=== PATIENT | male | born 1945 | race Caucasian/White ===

== ENCOUNTER → 2024-07-31 08:46 | Outpatient (REF) | payer MEDICARE, OTHER, SELFPAY | LOC: RAD 08:46 | PROVIDERS: ATTENDING PHYSICIAN Surgery Vascular Surgery; FAMILY PHYSICIAN Family Medicine | DX: I65.23 Occlusion and stenosis of bilateral carotid arteries (principal) | CPT/HCPCS: 70496; 70498; Q9967 ==

== ENCOUNTER 2024-09-02 06:03 | Inpatient (IN) | payer MEDICARE, OTHER, SELFPAY ==
[2024-08-26 09:41] VITALS: BMI 37.8
[2024-08-26 10:12] LABS: % Basophils 1.1 % (0-2); % Eosinophils 6.1 % (0-6); % Immature Granulocytes 0.5 % (0-0.5); % Lymphocytes 12.2 % (20.5-51.1); % Monocytes 11.2 % (1.7-9.3); % Neutrophils 68.9 % (42.2-75.2); Absolute Basophils 0.1 10^3/uL (0-0.2); Absolute Eosinophils 0.5 10^3/uL (0-0.7); Absolute Lymphocytes 0.9 10^3/uL (1.2-3.4); Absolute Monocytes 0.8 10^3/uL (0.1-0.6); Absolute Neutrophils 5.1 10^3/uL (1.4-6.5); Hematocrit 41.2 % (39.0-52.0); Hemoglobin 13.7 g/dL (13.0-18.0); Mean Corp Hgb Conc. 33.3 g/dL (33.0-37.0); Mean Corpuscular Hgb 29.9 pg (27.0-31.0); Mean Platelet Volume 10.4 fL (7.4-10.4); Nucleated Red Blood Cells % 0 % (-); Platelet Count 485 10^3/uL (130-400); Red Blood Cell Count 4.58 10^6/uL (4.70-6.10); Red Cell Dist. Width 14.8 % (11.5-14.5); White Blood Cell Count 7.4 10^3/uL (4.8-10.8)
[2024-08-26 10:17] LABS: PT 14.5 Sec (11.4-14.6)
[2024-08-26 10:23] LABS: APTT 29.3 Sec (23.4-35.0)
[2024-08-26 10:49] LABS: Blood Urea Nitrogen 19 mg/dl (9-20); Calcium 9.3 mg/dl (8.4-10.2); Carbon Dioxide 28 mmol/L (22-30); Chloride 105 mmol/L (98-107); Estimated Creatinine Clearance 94 ml/min; Glucose 106 mg/dl (70-99); Potassium 5.5 mmol/L (3.5-5.1); Sodium 144 mmol/L (135-145); eGFR > 60.00
--- NOTE | 2024-08-27 10:01 | PTCARENOTE ---
K+ 5.5, Dr. Caputo's Office made aware.
--- NOTE | 2024-08-27 14:51 | PTCARENOTE ---
K+ 5.5, Dr. Cramer notified, no new actions required.
[2024-09-02] VITALS (21 sets, daily range): BP systolic 141–165; BP diastolic 59–82
[2024-09-02] MEDS: PERIDEX 0.12% ORAL RINSE 15 ML PO (07:06)
[2024-09-02] MEDS: BACTROBAN NASAL 1 GRAM NASAL (07:07)
[2024-09-02] MEDS: NSS 500 IV (07:07)
--- NOTE | 2024-09-02 07:26 | W.SUR.PREOP ---
Pre-Operative Surgical Note
-
I have examined this patient prior to the performance of the scheduled procedure.
The patient's condition is unchanged from the time of the current History and
Physical and the patient is able to undergo the scheduled procedure.
[2024-09-02 09:01] LABS: ACT-LR - POC 207 Seconds (116-155)
[2024-09-02 09:07] LABS: ACT-LR - POC 207 Seconds (116-155)
[2024-09-02 09:13] LABS: ACT-LR - POC 232 Seconds (116-155)
[2024-09-02 09:22] LABS: ACT-LR - POC 292 Seconds (116-155)
[2024-09-02 09:49] LABS: ACT-LR - POC 224 Seconds (116-155)
--- NOTE | 2024-09-02 10:21 | OR.RPT ---
Operative Report
Operative Report
Date of Operation: 09/02/2024
Pre Op Diagnosis: Asymptomatic high-grade stenosis right internal carotid artery
Post Op Diagnosis: Asymptomatic high-grade stenosis right internal carotid artery
Procedure: RIGHT carotid endarterectomy with patch angioplasty using bovine pericardium
Surgeon: Chad Caputo III, MD
Tug Master: Lacho Pritchard MD PhD, PGY2
Anesthesia: General
Complications: None
History and Indications for Procedure: 79-year-old male with right carotid artery stenosis
Procedure in Detail: Marquise Benitez was correctly identified and placed supine on the operating table. After adequate induction of anesthesia the right neck was positioned, prepped and draped in the usual sterile fashion. Preoperative antibiotics
were administered. A timeout procedure was performed with the nursing and anesthesia staff confirming the patients identity as well as the nature and laterality of the procedure.
The carotid bifurcation was marked with ultrasound at the beginning of the case. The incision was planned accordingly. An incision was made along the anterior border of the right sternocleidomastoid muscle. Electrocautery was used to divide the
subcutaneous tissue and platysma. The carotid sheath was entered with sharp dissection. The internal jugular vein was retracted laterally. The vagus nerve was identified and protected throughout the case. The common carotid artery was identified at
the base of this incision and carefully encircled with a vessel loop. The patient was systemically heparinized. The dissection was continued distally towards the carotid bifurcation. The facial vein was skeletonized, ligated and divided between ties
and clips. The proximal external carotid artery was encircled with a vessel loop. The distal internal carotid artery was encircled with a vessel loop at a soft spot on the artery beyond the plaque. The hypoglossal nerve was identified and protected.
The internal vessel loop was secured followed by the common and external. An arteriotomy was made on the distal common carotid artery with an 11-blade. This was extended proximally and distally with Virgen scissors. The arteriotomy was extended
distally through the plaque to an area of normal appearing internal carotid artery. The distal vessel loop was replaced with a short tip hockey-stick type vascular clamp. An endarterectomy was performed with a [place] elevator in the standard
fashion. The proximal extent of the plaque was transected with scissors. The distal end of the plaque in the internal carotid artery was feathered and there was a slight distal intimal flap identified. This was tacked down with 2 interrupted 7-0
Prolene sutures along the back wall. The plaque extending into the external carotid artery was everted. Once the plaque was fully removed the endarterectomy plane was irrigated with heparinized saline and any loose fronds of tissue were removed. A
pre-cut piece of bovine pericardium was sewn in place using a running 6-0 Prolene suture. Prior to the completion of the patch the common carotid was allowed to forward bleed and the external was allowed to back bleed. The area under the patch was
irrigated with heparinized saline to remove any potential thrombus or debris. The anastomosis was completed.
The external vessel loop was released first, followed by the common and then the internal. There was an excellent pulse in the distal internal carotid artery. An excellent quality Doppler signal in the distal internal carotid artery was also
confirmed. The patch suture line was closely inspected for hemostasis and was achieved. Protamine was administered. Hemostasis was achieved in the wound bed. The wound was irrigated with saline solution.
The wound was then closed in layers. Sterile dressings were applied. The patient awoke from anesthesia with no immediate neuro deficits and was taken to the PACU in stable condition.
Attestation: I was present and responsible for the entire procedure
Signed:
Chad Caputo III, MD
[facility]
[phone] (cell)
--- NOTE | 2024-09-02 10:43 | W.IMMPOSTOP ---
Surgical Immed Post Op Note
-
Primary Surgeon: Dr. Chad Caputo III, MD
Assisting Surgeon: Lacho Pritchard MD, PhD (PGY-2)
Pre-op Diagnosis: High grade stenosis of right carotid artery
Post-op Diagnosis: High grade stenosis of right carotid artery
Procedure Performed: Right carotid endarterectomy with bovine patch angioplasty
Anesthesia Type: General
Specimen / Cultures: None
Estimated Blood Loss: Minimal
Complications: None
Operative Findings: The patient was brought to the OR and placed in the supine position. Following anesthesia induction and neuromonitoring set up, ultrasound guidance was used to nadira the course of the right common carotid artery, carotid
bifurcation, and internal carotid artery. Incision was made along the anterior border of the SCM. Electrocautery and sharp dissection was used to expose the right common carotid artery. Care was taken to avoid the jugular vein and vagus nerve.
Proximal control was obtained around the common carotid artery. Further dissection exposed the internal carotid artery, external carotid artery, and the superior thyroid artery, which were controlled with vessel loops. The facial vein was ligated
with silk ties. Arteriotomy was made with a blade and extended with Virgen scissors. A freer was used to perform the endarterectomy. Three tacking sutures were placed within the vessel to tack up flaps of intima after performing the endarterectomy. A
piece of bovine patch was brought to the field and sized to the arteriotomy. A 6-0 prolene suture was used to perform the patch angioplasty. Prior to completing the patch angioplasty, heparinized saline was used to flush the vessel proximally and
distally. The vessel loops were removed. A doppler was brought to the field and confirmed strong signals in the internal and external carotid arteries. The wound bed was irrigated. Hemostasis was achieved. The wound bed was closed with 2-0, 3-0, and
4-0 layers and skin glue. At the completion of the case the patient followed commands, demonstrated motor function of the facial muscles as well as the upper and lower extremities. The patient was transported to the PACU in stable condition.
[2024-09-02 10:49] LABS: Hematocrit 38.9 % (39.0-52.0); Hemoglobin 12.9 g/dL (13.0-18.0); Mean Corp Hgb Conc. 33.2 g/dL (33.0-37.0); Mean Corpuscular Hgb 30.1 pg (27.0-31.0); Mean Corpuscular Volume 90.7 fL (80.0-94.0); Mean Platelet Volume 10.2 fL (7.4-10.4); Platelet Count 447 10^3/uL (130-400); Red Blood Cell Count 4.29 10^6/uL (4.70-6.10); Red Cell Dist. Width 15.2 % (11.5-14.5); White Blood Cell Count 9.3 10^3/uL (4.8-10.8)
--- NOTE | 2024-09-02 10:50 | CON.INTV ---
Consultation
Consultation Request
Date/Time Consultation Requested: 09/02/2024 - 1027
Date/Time Consultation Performed: 09/02/2024 - 1048
Requesting Provider: LESLY Pena
Performing Provider: Stan Ramirez MD
Reason for Consultation: s/p R-CEA
Medical History
-
Chief Complaint: Elective right carotid endarterectomy
History of Present Illness:
79-year-old male non-smoker with a past medical history of colon cancer s/p resection (2003), hypertension, hypercholesterolemia, bilateral carotid artery stenosis and RBBB who presents with right carotid endarterectomy. Patient known to vascular
surgery service with last visit on 07/23/[address] Caputo. CTA head & neck from 07/31/2024 shows 70% stenosis of the right internal carotid artery with 60% stenosis of the left common carotid artery, and 40-50% stenosis of the left internal
carotid artery. He has known extensive soft plaque in his left common carotid artery + ICA and also significant stenosis in his right carotid artery. He has mild weakness of his right arm/right leg relative to his left. No recent visual changes
or dysarthria. Vascular intervention with risks and benefits were discussed, and today he underwent a right carotid endarterectomy with patch angioplasty using bovine pericardium. There were no immediate complications and he was transferred to the
ICU for further care. [employer] services consulted for additional management/recommendations.
When I saw the patient he was resting in bed in no acute distress. Heart rate 79, BP via A-line: 134/44, BP via NIBP: 150/135, and saturating 97% on 2 L/min nasal cannula. He has numbness on his right anterior neck but denies pain currently. Also
denies headache, visual changes, chest pain, SOB, abdominal pain, nausea, fevers or chills.
PMHx: Bilateral carotid artery stenosis, hypercholesterolemia, history of stroke (11/2023), history of colon cancer s/p resection (2003), hypertension, history of RBBB
PSHx: Tonsillectomy, appendectomy, retinal detachment surgery, colon surgery (2003), cholecystectomy
Past Medical History
Past Medical History: Other (Above as per HPI)
Past Surgical History: Other (Above as per HPI)
Social History
Tobacco: Non-smoker
Alcohol: None
Drug: None
Family History
Family History: Diabetes (Mother) and Hypertension (Father)
Allergies / Home Medications
Allergies
Allergy/AdvReac Type Severity Reaction Status Date / Time
No Known Allergies Allergy Unverified 08/21/24 13:01
Home Medications
�Medication �Instructions �Recorded �Confirmed �Last Taken �Type
aspirin 81 mg capsule 81 mg PO DAILY 08/21/24 09/02/24 09/02/24 History
atorvastatin 40 mg tablet 40 mg PO DAILY 08/21/24 09/02/24 09/01/24 17:00 History
terazosin 2 mg capsule 2 mg PO DAILY 08/21/24 09/02/24 09/01/24 20:00 History
terazosin 5 mg capsule 5 mg PO DAILY 08/21/24 09/02/24 09/01/24 20:00 History
timolol 0.5 % eye drops 1 drp ophthalmic (eye) BID 09/02/24 09/02/24 Unknown History
Review of Systems
-
History Source: Patient
All other systems: Negative unless noted
Vitals / Labs / Diagnostic Testing
Vital Signs
Temp Pulse Resp BP Pulse Ox
97.8 F 77 17 162/82 96
09/02/24 15:37 09/02/24 16:15 09/02/24 16:15 09/02/24 16:00 09/02/24 16:15
Lab Data
09/02/24 10:34
09/02/24 10:34
Laboratory Results
09/02/24
14:14
PT 15.2 H
INR 1.17
APTT 29.9
Diagnostic Testing:
Physical Exam
-
HEENT: Normocephalic, Anicteric and Other (Vertical incision nadira is seen on right anterior neck with no bleeding or purulence seen)
Cardiovascular: S1/S2 and Peripheral Edema (negative)
Respiratory: Wheeze (negative), Rales (negative), Rhonchi (negative) and Non-Labored Respirations
GI: Soft, Distended (Abdominal obesity), Non Tender and Normal Bowel Sounds
Neurology: AO x 3 and Tremors (negative)
Skin: Warm and Dry
General: Respiratory Distress (negative), Comfortable, Fever (negative) and Chills (negative)
Assessment
-
Assessment: 79-year-old male non-smoker with a past medical history of colon cancer s/p resection (2003), hypertension, hypercholesterolemia, bilateral carotid artery stenosis and RBBB who presents with right carotid endarterectomy. Patient known
to vascular surgery service with last visit on 07/23/[address] Caputo. CTA head & neck from 07/31/2024 shows 70% stenosis of the right internal carotid artery with 60% stenosis of the left common carotid artery, and 40-50% stenosis of the left
internal carotid artery. He has known extensive soft plaque in his left common carotid artery + ICA and also significant stenosis in his right carotid artery. He has mild weakness of his right arm/right leg relative to his left. No recent visual
changes or dysarthria. Vascular intervention with risks and benefits were discussed, and today he underwent a right carotid endarterectomy with patch angioplasty using bovine pericardium. There were no immediate complications and he was
transferred to the ICU for further care. Bellperson services consulted for additional management/recommendations.
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
Impression:
#Asymptomatic high-grade stenosis involving right internal carotid artery s/p right carotid endarterectomy with patch angioplasty using bovine pericardium (POD #0)
#Acute anemia due to above
#Thrombocytosis likely reactive due to above
#Obesity (BMI: 37.8)
#History of colon cancer s/p resection (2003)
#RBBB
#Hypertension
#Hypercholesterolemia
Plan:
Postoperative surgical intensive care unit monitoring
Supplemental oxygen as needed to maintain SpO2 >90-94%
prn nebulized bronchodilators
Incentive spirometry encouraged 10x per hour for at least 4 hrs a day
Aspiration precautions
Pain control
Neuro and vascular checks per protocol
Maintain MAP>65
Replete electrolytes with K>4, Mg>2
Maintain euglycemia with goal BG 140-180
Vascular surgery following-correspondence and operative notes reviewed
Transfuse blood products as needed to keep Hb>7g/dL, and plt>50k (given post-operative status)
DVT prophylaxis
Early nutrition
Early mobilization
Critical care statement: A total of 44 minutes of critical care time was provided for this patient today. This includes management of unstable vital signs, evaluation of the patient at bedside, reviewing the patient's pertinent medical records
including radiographs, microbiology, laboratory evaluations, and discussion with primary team, consultants, pharmacy, nutrition, physical therapy, case management, charge nurse, critical care nursing, and respiratory therapy.
[2024-09-02] MEDS: DILAUDID 0.25 MG IV (10:52)
[2024-09-02 11:02] LABS: Blood Urea Nitrogen 19 mg/dl (9-20); Calcium 8.4 mg/dl (8.4-10.2); Carbon Dioxide 27 mmol/L (22-30); Chloride 106 mmol/L (98-107); Estimated Creatinine Clearance 94 ml/min; Glucose 131 mg/dl (70-99); Potassium 4.8 mmol/L (3.5-5.1); Sodium 141 mmol/L (135-145); eGFR > 60.00
[2024-09-02] MEDS: CARDENE 200 IV (11:09)
[2024-09-02] MEDS: DILAUDID 0.5 MG IV (11:31)
[2024-09-02] MEDS: NSS 1000 IV (14:15)
--- NOTE | 2024-09-02 14:38 | PTCARENOTE ---
received from pacu, very talkative. monitor nsr with bbb,avb. left radial arterial line with good waveform, cuff correlation. assessments per work list. attempted to void in urinal, no success. bladder scan per work list, right neck incision intact
with slight bruising. cardene per work list. call lamb in reach. updated with plan of care
[2024-09-02 14:51] LABS: INR 1.17; PT 15.2 Sec (11.4-14.6)
[2024-09-02 14:52] LABS: APTT 29.9 Sec (23.4-35.0)
--- NOTE | 2024-09-02 16:22 | PTCARENOTE ---
reassessed. remains very talkative. hand grsps and pedal pushes equal, tongue midline and smile remains symmetrical. tolerated lunch, denies need for pain medications. room air pulse oximeter 90, placed back on 1 liter nasal cannula. cardene remains
per work list. blood pressure within ordered parameters
[2024-09-02] MEDS: LIPITOR 40 MG PO (17:58)
[2024-09-02] MEDS: TYLENOL 650 MG PO (17:58)
--- NOTE | 2024-09-02 20:00 | PTCARENOTE ---
rec`d pt at 1900 AAOx3. hard of hearing, very talkative. anxious. SR on monitor. HR 60s-80s. left radial a line. left w 20 and rt w 18. neuro checks continued. +pulses. +1 edema. cardene on at 2.5 to maintain SBP 100-165. 1L NC crackles. uses
urinal. Rt neck incision with surgi glue. ecchymotic and some swelling. NS at 80cc. call lamb in reach, safe environment maintained.
[2024-09-02] MEDS: DESENEX/MITRAZOL/ZEASORB 1 APPLIC TOPICAL (20:14)
[2024-09-02] MEDS: HEPARIN 5000 UNITS SC (20:15)
[2024-09-02] MEDS: TIMOPTIC 0.5% OPHTHALMIC SOLUTION 1 DROP RIGHT EYE (20:24)
[2024-09-02] MEDS: HYTRIN 5 MG PO (21:00)
[2024-09-02] MEDS: HYTRIN 2 MG PO (21:00)
[2024-09-03] VITALS (8 sets, daily range): BP systolic 127–158; BP diastolic 52–61; BMI 36.4
[2024-09-03] MEDS: CARDENE 200 IV (00:18)
--- NOTE | 2024-09-03 01:00 | PTCARENOTE ---
pt reassessed. no changes in pt assessment. call lamb in reach, safe environment maintained.
[2024-09-03] MEDS: NSS 1000 IV (01:13)
--- NOTE | 2024-09-03 04:00 | PTCARENOTE ---
cardene off, SBP 145
[2024-09-03 04:28] LABS: Hematocrit 37.2 % (39.0-52.0); Hemoglobin 12.5 g/dL (13.0-18.0); Mean Corp Hgb Conc. 33.6 g/dL (33.0-37.0); Mean Corpuscular Hgb 29.9 pg (27.0-31.0); Mean Platelet Volume 10.5 fL (7.4-10.4); Platelet Count 522 10^3/uL (130-400); Red Blood Cell Count 4.18 10^6/uL (4.70-6.10); Red Cell Dist. Width 14.9 % (11.5-14.5); White Blood Cell Count 10.3 10^3/uL (4.8-10.8)
[2024-09-03 04:34] LABS: APTT 31.3 Sec (23.4-35.0); INR 1.21; PT 15.6 Sec (11.4-14.6)
[2024-09-03 04:58] LABS: Blood Urea Nitrogen 17 mg/dl (9-20); Calcium 8.4 mg/dl (8.4-10.2); Carbon Dioxide 27 mmol/L (22-30); Chloride 105 mmol/L (98-107); Estimated Creatinine Clearance 108 ml/min; Glucose 158 mg/dl (70-99); Potassium 4.7 mmol/L (3.5-5.1); Sodium 139 mmol/L (135-145); eGFR > 60.00
--- NOTE | 2024-09-03 07:55 | W.PN.VS ---
Addendum entered and electronically signed by Marc Encarnacion MD 09/03/24 10:43:
Seen and examined with MORGAN Brambila. Agree with findings as noted below. Right neck incision clean dry and intact. No hematoma. Neurologically no focal deficits. Moves all extremities well. Tongue midline. Plan/as discussed and noted below.
Original Note:
Today's Communication / Plan
-
Seen and assessed with Dr. Encarnacion
Assessment/Plan
-
POD 1 Right CEA
Plan:
- DC A-line
� Out of bed
� DC IV fluids
-P.o. meds
-Increase diet
� Likely DC later today
Subjective Data
-
Date of Service: September 03, 2024
Patient seen at bedside this a.m. with Dr. Encarnacion. Patient offers no complaints. Off Cardene drip at this time.
Objective Data
-
Vital Signs
Temp Pulse Resp BP Pulse Ox
98.5 F 67 24 157/61 95
09/03/24 07:42 09/03/24 04:00 09/03/24 04:00 09/03/24 00:00 09/03/24 04:00
Intake and Output
09/02/24 09/03/24 09/04/24
06:59 06:59 06:59
Intake Total 2275.0 / 2275.0
Output Total 1350 / 1350
Balance 925.0 / 925.0
Intake:
Oral fluids 700 / 700
IV fluids (Total) 1575.0 / 1575.0
Normosol 200 / 200
Nss 1,000 ml @ 80 mls/hr IV . 1200 / 1200
[id number] DAVID Rx#:[id number]
cardene 175.0 / 175.0
Output:
Urine, Voided 1350 / 1350
Other:
How many times incontinent 1
MODERATE amount urine
Lab Results
09/03/24 03:45
09/03/24 03:45
Calcium 8.4 mg/dl (8.4-10.2) 09/03/24 03:45
Physical Exam
-
AAOx3
No tachypnea on room air
No tachycardia
Abdomen soft
Site clean, dry, intact, soft, flat
Moving all extremities equally
Tongue midline
[2024-09-03] MEDS: HEPARIN 5000 UNITS SC (08:24)
[2024-09-03] MEDS: TIMOPTIC 0.5% OPHTHALMIC SOLUTION 1 DROP RIGHT EYE (08:24)
[2024-09-03] MEDS: LOW STRENGTH ASPIRIN 81 MG PO (08:24)
[2024-09-03] MEDS: DESENEX/MITRAZOL/ZEASORB 1 APPLIC TOPICAL (08:25)
--- NOTE | 2024-09-03 08:31 | W.PN.INTV ---
Today's Communication / Plan
Recommendations
Pain control
Up OOB as tolerated
Follow-up with vascular surgery and PCP
Encourage incentive spirometer use
Maintain SpO2 >90-94%
Patient is being prepared for discharge home. No additional recommendations at this time. Service Supervisor/Pulmonary service will now sign off. Please re-consult if there are any additional questions/concerns, or if patient's respiratory status
deteriorates.
Assessment
-
Assessment: 79-year-old male non-smoker with a past medical history of colon cancer s/p resection (2003), hypertension, hypercholesterolemia, bilateral carotid artery stenosis and RBBB who presents with right carotid endarterectomy. Patient known
to vascular surgery service with last visit on 07/23/[address] Caputo. CTA head & neck from 07/31/2024 shows 70% stenosis of the right internal carotid artery with 60% stenosis of the left common carotid artery, and 40-50% stenosis of the left
internal carotid artery. He has known extensive soft plaque in his left common carotid artery + ICA and also significant stenosis in his right carotid artery. He has mild weakness of his right arm/right leg relative to his left. No recent visual
changes or dysarthria. Vascular intervention with risks and benefits were discussed, and today he underwent a right carotid endarterectomy with patch angioplasty using bovine pericardium. There were no immediate complications and he was
transferred to the ICU for further care. Service Supervisor services consulted for additional management/recommendations.
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
Impression:
#Asymptomatic high-grade stenosis involving right internal carotid artery s/p right carotid endarterectomy with patch angioplasty using bovine pericardium (POD #1)
#Acute anemia due to above
#Thrombocytosis likely reactive due to above
#Obesity (BMI: 37.8)
#History of colon cancer s/p resection (2003)
#RBBB
#Hypertension
#Hypercholesterolemia
Plan:
Postoperative surgical intensive care unit monitoring
Supplemental oxygen as needed to maintain SpO2 >90-94%
prn nebulized bronchodilators - not currently bronchospastic
Incentive spirometry encouraged 10x per hour for at least 4 hrs a day
Aspiration precautions
Pain control
Neuro and vascular checks per protocol
Maintain MAP>65
Replete electrolytes with K>4, Mg>2
Maintain euglycemia with goal BG 140-180
Vascular surgery following-correspondence and operative notes reviewed
Transfuse blood products as needed to keep Hb>7g/dL, and plt>50k (given post-operative status)
DVT prophylaxis
Early nutrition
Early mobilization
Patient is being prepared for discharge home. No additional recommendations at this time. Service Supervisor/Pulmonary service will now sign off. Thank you for allowing us to be involved in the care of this patient. Please reconsult if there are any
additional questions/concerns, or if patient's respiratory status deteriorates.
Total time spent today was 42 minutes for this encounter. Time includes reviewing laboratory test/imaging results, reviewing pertinent medical records, obtaining and reviewing medical history, performing an appropriate exam, ordering medications,
tests and procedures. Time also includes documentation of this encounter, coordinating patient care and communicating with other healthcare professionals. Total time does not include separately billed tests performed on this date of service.
Subjective Dataa
Subjective Data
Date of Service:
Date of Service: September 03, 2024
Chief Complaint: Service Supervisor Follow Up
Subjective:
Patient was seen and evaluated this morning. Doing well with no acute events reported overnight. A-line out. Off cardene since overnight. BP 129/58, HR 56 and on RA saturating 93%. He has minimal complaints, denying neck pain, HERRERA, SOB, CP,
abdominal pain, nausea, fevers or chills.
Review of Systems
General: Other (Negative unless mentioned above)
Objective Data
Data Reviewed
Vital Signs / I&O / Oxygen:
Vital Signs
Temp Pulse Resp BP Pulse Ox
98.5 F 60 15 148/55 95
09/03/24 07:42 09/03/24 09:10 09/03/24 09:10 09/03/24 08:08 09/03/24 09:10
Intake and Output
09/02/24 09/03/24 09/04/24
06:59 06:59 06:59
Intake Total 2355.0 / 2435.0 540 / 540
Output Total 1350 / 1350
Balance 1005.0 / 1085.0 540 / 540
SaO2 95
Nasal Cannula flow liters per 1
minute
Physical Exam
General: Respiratory Distress (negative), Comfortable, Chills (negative) and Sweats (negative)
HEENT: Normocephalic, Anicteric and Other (Vertical incision scar seen over right anterior neck)
Cardiovascular: S1-S2 and Peripheral Edema (negative)
Respiratory: Clear, Wheeze (negative), Crackles (negative), Rhonchi (negative) and Non-Labored Respirations
GI: Soft, Distended (Abdominal obesity), Non Tender and Normal Bowel Sounds
Neurology: AO x 3 and Tremors (negative)
Skin: Warm, Dry, Cyanosis (negative) and Jaundice (negative)
Labs/Micro/Reports
Lab Data
09/03/24 03:45
09/03/24 03:45
Laboratory Results
09/02/24 09/03/24
14:14 03:45
PT 15.2 H 15.6 H
INR 1.17 1.21
APTT 29.9 31.3
--- NOTE | 2024-09-03 09:00 | PTCARENOTE ---
Rec'd pt at 0700 awake alert and oriented resting in bed. Neuro check completed with offgoing RN. Pt is very talkative and anxious/expressing concern over when he will be discharge because he would like to be discharged by 1230. Worried about the
person picking him up driving from [employer] and not being able to find where to pick him up at the hospital. Reassurance and multiple discussions and explanations given about plan of care. Pt made aware he may not be discharge by 12:30- more like
early to mid afternoon depending on how he is doing confirmed by who was in to see him. Verbalized understanding. Pt tends to ask questions about every aspect of his care. Speech is clear. Tongue is midline. MIRELLA at 2mm. Pt admits he has very
limited vision in his L eye from a prior retinal tear. MATHUR equally. Denies numbness or tingling. Skin is pale pink wm and dry. R neck incision is approximated with surgical adhesive present. Sl ecchymosis around incision and sl neck swelling at
incision but no change from previous. No hematoma noted. No drainage. Respirs are sl shallow but non-labored on RA with sats of 93-94%. BS are decreased at the bases. Monitor SR -Sbrady with 1st' avb, BB config and isolated PVC. ECG completed as
ordered. + pulses. PT and DP pulses with the doppler. Edema as noted. Denies chest pain. L radial mark present. Site wnl. Zeroed and recalibrated. Within 10-12 mm/hg of cuff BP. Cardene gtt remains off. Abd is obese/round with + BS. Denies nausea.
Denies need to void currently but has been using the urinal. IV NSS infusing via R wrist IV site at 80 ml/hr. Capped Int intact L wrist. Pt repositioned and ready to eat breakfast. Call lamb in reach an plan of care reviewed several times with pt.
--- NOTE | 2024-09-03 09:11 | CM ---
CM following re: discharge planning.
Reviewed pt's chart, met with pt.
Pt is a 79 year old male, admitted with primary dx of POD 1 s/p Right CEA. Per vasculare surgery, pt will be discharged home this afternoon. Pt is aware, expressed his agreement and he stated his ex- will transport home. IMM reviewed, placed on
chart, pt has a copy.
Pt reports he lives alone in an apartment, 3 steps to enter, has supportive ex- and 3 children. pt described himself as independent in all areas [employer], drives. Pt reports he had a stroke 9 months ago, has a walker and does not use it. Pt reports
he will not need after care VN services.
PCP: Rigo Gabriel
Pharmacy: [facility].
D/C plan: home no needs. Ex- to transport.
--- NOTE | 2024-09-03 09:30 | PTCARENOTE ---
Good appetite for breakfast. A line dc'd. Pressure held over the site. No hematoma.
--- NOTE | 2024-09-03 10:15 | PTCARENOTE ---
IV fluids dc'd per MD order.
--- NOTE | 2024-09-03 10:15 | PTCARENOTE ---
Complete CHG bath given. Incont a scant smear of brown stool. Alesha care given and Desenex applied. Pt did his own mouth care. Pt then assisted oob to the chair. Denies any dizziness or headache but does admit when he first gets oob in the morning he
is slow and his legs are a little weak. Noted when he stood that gait was weak but easily able to bear wt. Denies any numbness. Currently sitting oob in the chair. Call lamb in reach. Pt anxious for when he can get discharged- reinformed him of the
plan of care
--- NOTE | 2024-09-03 11:45 | PTCARENOTE ---
Tolerated sitting oob. Only complaint is that his voice is hoarse but no difficulty noted with swallowing. Incision is unchanged- R neck remains sl swollen but no change from earlier. No drainage from incision. Ambulated 1 loop in the ICU. Gait is
slow but steady and no c/o dizziness. 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 Denies overt numbness but states he is just slow when he first gets up. VS as documented. Vascular surgery updated.
--- NOTE | 2024-09-03 13:40 | PTCARENOTE ---
DC order placed. Pt denies discomfort. Capped ints dc'd from R and l wrists. Sites wnl. L mark site wnl. All dc instructions given to pt and answered pts questions. Pt aware of symptoms that require a 911 call and ones that require a call to the
vascular surgeon. Pt verbalized understanding. Dc'd via wheelchair with ex Erinn. Once in the lobby for dc- Did notice a small area a the top of incision that looked like a shallow skin tear vs surgical adhesive. No drainage and rest of incision
unchanged. Will update vascular surgery. Of note- pts home meds left in pharmacy- Did call pt after he left and he will pick them up on 09/16 when his follow up appointment is. Pt stated he has bottles of those same meds at home as he just brought
in a few tablets of each. Pharmacy made aware and will note it.
== END 2024-09-03 14:14 | disposition home or self-care (01) | DRG 39 ==
LOC: ICU 06:03
PROVIDERS: Nurse Practitioner; ADMITTING PHYSICIAN Surgery Vascular Surgery; CONSULT PHYSICIAN Internal Medicine Critical Care Medicine; FAMILY PHYSICIAN Family Medicine
PROC: 03CH0ZZ Extirpation of Matter from Right Common Carotid Artery, Open Approach (ICD-10-PCS; 2024-09-02)
PROC: 03UH0KZ Supplement Right Common Carotid Artery with Nonautologous Tissue Substitute, Open Approach (ICD-10-PCS; 2024-09-02)
DX: I65.23 Occlusion and stenosis of bilateral carotid arteries (principal); E66.9 Obesity, unspecified; Z68.37 Body mass index [BMI] 37.0-37.9, adult
CPT/HCPCS: 88304; 88311; 35301; 36415; 71045; 71046; 80048; 85025; 85027; 85610; 85730; 93005; 95938; 95941; 95955

== ENCOUNTER → 2024-10-15 10:21 | Outpatient (REF) | payer MEDICARE, OTHER, SELFPAY | LOC: RAD 10:21 | PROVIDERS: ATTENDING PHYSICIAN Registered Nurse | DX: I65.23 Occlusion and stenosis of bilateral carotid arteries (principal) | CPT/HCPCS: 93880 ==

== ENCOUNTER → 2025-04-27 09:46 | Outpatient (REF) | payer MEDICARE, OTHER, SELFPAY | LOC: DHVS 09:46 | PROVIDERS: ATTENDING PHYSICIAN Surgery Vascular Surgery; REFERRING PHYSICIAN Internal Medicine Cardiovascular Disease | DX: I65.23 Occlusion and stenosis of bilateral carotid arteries (principal) | CPT/HCPCS: 93880 ==

== ENCOUNTER → 2025-05-19 11:20 | Outpatient (REF) | payer MEDICARE, OTHER, SELFPAY | LOC: RAD 11:20 | PROVIDERS: ATTENDING PHYSICIAN Registered Nurse; FAMILY PHYSICIAN Family Medicine | DX: I65.23 Occlusion and stenosis of bilateral carotid arteries (principal) | CPT/HCPCS: 70496; 70498; Q9967 ==